=== PATIENT | female | born 1950 | race African-American/Black ===

== ENCOUNTER → 2022-07-21 | Outpatient (CLI) | payer MEDICARE ==
[~2022-07-21] MED LIST: CEPHALEXIN500 M1 PO; GERITOL COMPLET1 TA1 PO; HCTZ 25MG TAB25 MG PO; IBU800 M1 PO; NORCO 325 MG-51 TAB PO; PRINIVIL20 MG PO; PROCARDIA XL 6060 MG PO
== END ==
LOC: COL.RAD 08:52
DX: M25.561 Pain in right knee (principal); M25.562 Pain in left knee; Z96.652 Presence of left artificial knee joint
CPT/HCPCS: A9503